=== PATIENT | female | born 1970 | race Caucasian/White ===

== ENCOUNTER 2017-03-05 12:53 | Emergency (ER) | payer MEDICAID ==
[~2017-03-05] VITALS: Ht 162.6 cm; Wt 110.0 kg
[~2017-03-05 12:53] MED LIST: CIPR-173; HYDR-3498 PO; IBUP-1542 PO; VICODIN
[2017-03-05 12:56] VITALS: Ht 162.6 cm; Wt 110.0 kg
[2017-03-05] MEDS ORDERED: SOD CHLORIDE 0.9% 1,000 ML IV STA (13:16)
[2017-03-05] MEDS ORDERED: PIPER-TAZO 3.375 GM IV (PMX) 100 ML IVPB ONE (13:30)
[2017-03-05] MEDS ORDERED: IBUPROFEN 600 MG TAB PO ONE (13:30)
[2017-03-05 13:45] LABS: ADD SCAN DIFF NO
[2017-03-05 13:47] LABS: BASOPHIL # 0.1 10^3/ul (0.0-0.1); BASOPHILS % 0.5 % (0.0-2.0); EOSINOPHILS # 0.3 10^3/ul (0.0-0.5); EOSINOPHILS % 2.5 % (0.0-7.0); HEMATOCRIT 37.2 % (37.0-47.0); HEMOGLOBIN 12.3 g/dl (12.0-16.0); LYMPHOCYTES # 2.4 10^3/ul (0.8-2.9); LYMPHOCYTES % 24.1 % (15.0-51.0); MEAN CORPUSCULAR HGB CONC 33.1 g/dl (32.0-37.0); MEAN CORPUSCULAR VOLUME 84.7 fl (82.0-101.0); MEAN PLATELET VOLUME 11.1 fl (7.4-10.4); MONOCYTE # 0.9 10^3/ul (0.3-0.9); MONOCYTES % 8.6 % (0.0-11.0); NEUTROPHIL # 6.5 10^3/ul (1.6-7.5); NEUTROPHILS % 63.8 % (39.0-77.0); PLATELET COUNT 271 10^3/UL (140-415); RED BLOOD COUNT 4.39 10^6/ul (4.20-5.40); RED CELL DISTRIBUTION WIDTH 14.5 % (11.5-14.5); WHITE BLOOD COUNT 10.1 10^3/ul (4.8-10.8)
[2017-03-05 13:53] LABS: ADD UMIC YES; UR ASCORBIC ACID NEGATIVE (NEGATIVE); UR BILIRUBIN (Dip) NEGATIVE (NEGATIVE); UR BLOOD (Dip) 1+ mg/dL (NEGATIVE); UR CLARITY SLIGHTLY CLOUDY (CLEAR); UR COLOR YELLOW (YELLOW); UR GLUCOSE (Dip) NEGATIVE (NEGATIVE); UR KETONES (Dip) NEGATIVE (NEGATIVE); UR LEUKOCYTE ESTERASE (Dip) TRACE Leu/ul (NEGATIVE); UR NITRITE (Dip) NEGATIVE (NEGATIVE); UR RBC 2 /HPF (0-5); UR SQUAMOUS EPITHELIAL CELL FEW /HPF (FEW); UR TOTAL PROTEIN (Dip) NEGATIVE (NEGATIVE); UR UROBILINOGEN (Dip) NEGATIVE (NEGATIVE)
[2017-03-05 14:04] LABS: CALCIUM 8.7 mg/dl (8.4-10.2); CREATININE 0.61 mg/dl (0.44-1.00); POTASSIUM 3.5 mmol/L (3.5-5.1)
[2017-03-05] MEDS ORDERED: IOHEXOL 300MG/ML 150 ML BTL ONE (16:32)
[2017-03-05] MEDS ORDERED: SOD CHLORIDE 0.9% 100 ML ONE (16:32)
--- NOTE | 2017-03-05 18:04 | RADRPT ---
PROCEDURE: CT Brain and IAC with contrast. CLINICAL INDICATION: 46-year-old female with history of mastoiditis, left ear pain. TECHNIQUE: The study was performed utilizing a multi-slice, multidetector CT scanner. Direct spira l 1 mm axial sections were obtained through the head with the use of intravenous contrast material. 100 ccs of Omnipaque-300 was utilized without complication. 1 or more of the following dose reduc tion techniques were utilized: Automated exposure control, adjustment of the mA and/or kV according to patient's size, iterative reconstruction technique. Coronal and sagittal reformations were obta ined. The images were reviewed on a PACS workstation. RADIATION DOSE: CTDIvol: 53.82 mGy mGyDLP: 1052.99 mGy.cm mGy-cm COMPARISON: No prior studies are available for comparison. FINDINGS: CT head with contrast: There is no intracranial hemorrhage, extra-axial fluid collection, mass lesio n, midline shift or hydrocephalus. The ventricles, cisterns and sulci are normal in size and config uration. The white matter is unremarkable. The purcell-white matter differentiation is preserved. Th e basal cisterns are patent. The brainstem and cerebellum are normal in appearance. Postcontrast i mages demonstrate no abnormal parenchymal, leptomeningeal or dural enhancement. The paranasal sinuse s demonstrate mucosal retention cysts in the bilateral maxillary sinuses. The orbits and calvarium are normal in appearance. Right temporal bone: The external auditory canal is normal in appearance. The tympanic membrane is intact. The ossicles are intact. The stapes articulates normally with the oval window. There is normal bone mineral density of the fissula antefenestra. The inner ear structures are normal. The semicircular canals are covered by bone. The facial nerve describes a normal course. The mastoid a ir cells are normally aerated. The internal acoustic canal is unremarkable. Left temporal bone: There is prominent soft tissue swelling involving the outer third of the exter nal auditory canal, with subtle erosive changes involving the anterior wall of the external auditory canal. There is mild mucosal thickening involving the inner third/bony canal. There is suspicion for a tympanic membrane defect on the coronal reformatted images (#4), with mild fluid opacification of the left middle ear cavity and left sided ethmoid air cells. No definite coalescent mastoiditis is seen on the left. There are small areas of calcified cartilage seen along the inferior aspect o f the soft tissue density (axial series image 56), likely related to normal calcified component of t he soft tissue canal. The ossicles are intact. The stapes articulates normally with the oval windo w. There is normal bone mineral density of the fissula antefenestra. The inner ear structures are normal. The semicircular canals are covered by bone. The facial nerve describes a normal course. The mastoid air cells are normally aerated. The internal acoustic canal is unremarkable. Limited visualization of the intracranial contents is unremarkable. IMPRESSION: 1. Severe external otitis in the left external auditory canal with severe soft tissue swelling and subtle erosive changes involving the anterior wall of the external auditory canal. There are small spicules of calcified cartilage within the region of soft tissue swelling. 2. Suggestion of defect in the tympanic membrane with subsequent mild inflammatory changes of the l eft middle ear cavity and mastoid air cells, suggestive of otitis media perforata. No definite coal escent mastoiditis at this time. 3. Normal CT of the right temporal bone. 4. Anatomy as discussed above. RPTAT: HGAS .Aurelio Valdes MD, Date Time Electronically viewed and signed by .Aurelio Valdes MD, on 03/05/2017 18:03 .S/
[2017-03-05] MEDS ORDERED: NPH10OT LEFT EAR (18:51)
[2017-03-05] MEDS ORDERED: CEPH-443 PO (18:51)
[2017-03-05] MEDS ORDERED: IBUP-1542 PO (18:51)
[2017-03-05 19:08] VITALS: BP 144/72; PULSE 80; RESP 20; TEMP 98.1
--- NOTE | 2017-03-05 20:27 | ERD ---
ER Documentation Chief Complaint Date/Time DATE: 03/05/17 TIME: 20:21 Chief Complaint LEFT EAR PAIN HPI 46-year-old woman presents with left earache 2 days. She has had no fevers or chills, states she has had some mild hearing loss from the left ear, no headache or blurry vision, no vomiting or diarrhea. Patient denies trauma to the ear, denies swelling, but did experience some discharge earlier this morning. She denies recent antibiotic use or recent travel. ROS All systems reviewed and are negative except as per history of present illness. Medications Home Meds Active Scripts Cephalexin* (Keflex*) 500 Mg Capsule, 500 MG PO QID for 7 Days, CAP Prov:FELTON HOPPER MD 03/05/17 Neomycin/Polymyxin/Hydrocort* (Cortisporin* Otic) 10 Ml Susp, 4 DROP LEFT EAR TID for 10 Days, EA 1 Refill Prov:FELTON HOPPER MD 03/05/17 Ibuprofen* (Ibuprofen*) 600 Mg Tablet, 600 MG PO Q8 for PAIN AND/OR INFLAMMATION , #30 TAB Prov:FELTON HOPPER MD 03/05/17 Hydrocodone Bit-Acetaminophen* ([place]*) 5-325 Mg Tab, 1 TAB PO QHS Y for PAIN, # 7 TAB 0 Refills Prov:WENDI MIRANDA PA-C 12/24/15 Ibuprofen* (Motrin*) 600 Mg Tab, 600 MG PO Q6, #30 TAB 0 Refills Prov:WENDI MIRANDA PA-C 12/24/15 Reported Medications Ciprofloxacin Hcl (Cipro) 500 Mg Tablet, BID 04/12/12 [Vicodin] No Conflict Check 04/12/12 Allergies Allergies: Coded Allergies: No Known Allergy (Verified , 03/05/17) PMhx/Soc Obesity History of Surgery: Yes ( X2) Anesthesia Reaction: No Hx Neurological Disorder: No Hx Respiratory Disorders: No Hx Cardiac Disorders: No Hx Psychiatric Problems: No Hx Miscellaneous Medical Probl: Yes (gallstones) Hx Alcohol Use: No Hx Substance Use: No Hx Tobacco Use: No Smoking Status: Never smoker FmHx Family History: No diabetes Physical Exam Vitals Vital Signs Date Time Temp Pulse Resp B/P Pulse Ox O2 Delivery O2 Flow Rate FiO2 03/05/17 19:08 98.1 80 20 144/72 100 Room Air 03/05/17 12:56 98.1 89 20 140/71 99 Physical Exam GENERAL: Well-developed, well-nourished, well-hydrated, in no apparent distress , looks nontoxic in appearance HEENT: Moist mucous membranes, pink conjunctiva, left tympanic membrane bulging with purulent/serous discharge throughout the left EAC and erythema in the left EAC, mild mastoid bone tenderness to touch without overlying induration or erythema. NEURO: Alert and oriented 3, cranial nerves II through XII intact bilaterally, pupils equal round reactive to light, no focal deficits or facial asymmetry, sensation intact distally Strength 5/5 in upper and lower extremities bilaterally CARDIAC: Regular rate and rhythm, no murmurs rubs or gallops LUNGS: Clear bilaterally no wheezing crackles or stridor ABDOMEN: Soft nontender, no guarding, no rigidity, no rebound, no psoas sign no obturator sign. Normoactive bowel sounds SKIN: Warm and dry to touch, no abrasions, contusions, or hematomas, no lacerations, no ecchymosis, no target lesions, and without ulcers EXTREMITIES: No clubbing cyanosis or edema, calves are bilaterally symmetrical, no Homans sign, no popliteal cord sign. Distal pulses equal and bilateral PSYCH: Normal affect without agitation or irritability Result Diagram: 03/05/17 1335 03/05/17 1335 Results 24 hrs Laboratory Tests Test 03/05/17 13:35 White Blood Count 10.110^3/ul Red Blood Count 4.3910^6/ul Hemoglobin 12.3g/dl Hematocrit 37.2% Mean Corpuscular Volume 84.7fl Mean Corpuscular Hemoglobin 28.0pg Mean Corpuscular Hemoglobin Concent 33.1g/dl Red Cell Distribution Width 14.5% Platelet Count 92590^3/UL Mean Platelet Volume 11.1fl Neutrophils % 63.8% Lymphocytes % 24.1% Monocytes % 8.6% Eosinophils % 2.5% Basophils % 0.5% Nucleated Red Blood Cells % 0.0/100WBC Neutrophils # 6.510^3/ul Lymphocytes # 2.410^3/ul Monocytes # 0.910^3/ul Eosinophils # 0.310^3/ul Basophils # 0.110^3/ul Nucleated Red Blood Cells # 0.010^3/ul Urine Color YELLOW Urine Clarity SLIGHTLY CLOUDY Urine pH 5.0 Urine Specific [place] 1.030 Urine Ketones NEGATIVEmg/dL Urine Nitrite NEGATIVEmg/dL Urine Bilirubin NEGATIVEmg/dL Urine Urobilinogen NEGATIVEmg/dL Urine Leukocyte Esterase TRACELeu/ul Urine Microscopic RBC 2/HPF Urine Microscopic WBC 2/HPF Urine Squamous Epithelial Cells FEW/HPF Urine Hemoglobin 1+mg/dL Urine Glucose NEGATIVEmg/dL Urine Total Protein NEGATIVEmg/dl Sodium Level 137mmol/L Potassium Level 3.5mmol/L Chloride Level 105mmol/L Carbon Dioxide Level 25mmol/L Anion Gap 11 Blood Urea Nitrogen 9mg/dl Creatinine 0.61mg/dl Glucose Level 101mg/dl Calcium Level 8.7mg/dl Current Medications Medications (Trade) Dose Ordered Sig/Min Route PRN Reason Start Time Stop Time Status Last Admin Dose Admin Sodium Chloride (NS) 1,000 ml @ 1,000 mls/hr Q1H STAT IV 03/05/17 13:16 03/05/17 14:15 DC 03/05/17 13:46 Ibuprofen 600 mg 600 mg ONCE ONCE PO 03/05/17 13:30 03/05/17 13:31 DC 03/05/17 13:46 Piperacillin Sod/ Tazobactam Sod (Zosyn 3.375gm/ 100 ml (Pmx)) 100 ml @ 200 mls/hr ONCE ONCE IVPB 03/05/17 13:30 03/05/17 13:59 DC 03/05/17 13:51 IV Flush 10 ml 10 ml STK-MED ONCE .ROUTE 03/05/17 16:32 03/05/17 16:33 DC Sodium Chloride (NS) 100 ml @ ud STK-MED ONCE .ROUTE 03/05/17 16:32 03/05/17 16:33 DC Iohexol (Omnipaque 300mg/ ml) 150 ml STK-MED ONCE .ROUTE 03/05/17 16:32 03/05/17 16:33 DC Procedures/MDM IV line was established. I administered 1 L normal saline intravenously, Zosyn 3.375 g IV, and ibuprofen 600 mg p.o. CBC was unremarkable, electrolytes normal. Urinalysis reveals possible early urinary tract infection although patient has no genitourinary complaints. I did inform her that a UA will have to be repeated in about a week in her [facility] office, although if she is unable to schedule an appointment in the proper time. She may return here. CT scan of the brain was unremarkable, CT scan with IV contrast of the maxillofacial bones revealed diffuse left otitis externa and otitis media without acute mastoiditis. No intracranial pathology was noted. Please refer to radiologist dictation for full report. Patient's pain resolved, and symptoms improved. Vital signs remained normal and she is afebrile. She can be managed as an outpatient although I did give her instructions to return if needed. Differential diagnoses considered, included but not limited to acute mastoiditis , spinal epidural abscess, parotiditis, sepsis, stroke, meningitis, encephalitis , pneumonia, appendicitis, cholecystitis, bowel obstruction, pyelonephritis, nephrolithiasis, cystitis, as well as metabolic, hematologic, and electrolyte abnormalities. As well as abscess, cellulitis, fractures, and dislocations. Patient feels much better at this time, and vital signs are normal, symptoms have improved. I did give strict instructions to return to the ED if symptoms continue or worsen, patient will otherwise follow-up with primary care physician. Patient understood instructions and agreed to plan. Disclaimer: Inadvertent spelling and grammatical errors are likely due to EHR/ dictation software use and do not reflect on the overall quality of patient care. Also, please note that the electronic time recorded on this note does not necessarily reflect the actual time of the patient encounter. Departure Diagnosis: Primary Impression: Otitis externa Otitis externa type: other infective Laterality: left Chronicity: acute Qualified Code: H60.392 - Other infective acute otitis externa of left ear Additional Impression: Otitis media Otitis media type: suppurative Laterality: left Chronicity: acute Recurrence: not specified as recurrent Spontaneous tympanic membrane rupture: with spontaneous rupture Qualified Code: H66.012 - Acute suppurative otitis media of left ear with spontaneous rupture of tympanic membrane, recurrence not specified Condition: Good Patient Instructions: Otitis Externa (Child), Otitis Media, Abx Tx (Adult) FELTON HOPPER MD Mar 05, 2017 20:27
== END 2017-03-05 19:09 | disposition home or self-care (01) ==
LOC: FTE 12:53
DX: H60.392 Other infective otitis externa, left ear (principal); H66.012 Acute suppurative otitis media with spontaneous rupture of ear drum, left ear
CPT/HCPCS: 36415; 70460; 70480; 80048; 81001; 85025; 96365; J2543; J7030; Q9967; Z7502; Z7610